=== PATIENT | male | born 1990 | race Two or more races ===

== ENCOUNTER 2024-08-23 17:32 | Emergency (ER) | payer SELFPAY ==
[2024-08-23] MEDS: Fluorescein 1 MG Ophth Strip EYEBOTH ONE (18:34)
[2024-08-23] MEDS: Proparacaine 0.5% Ophth Soln 15 ML Bottle EYEBOTH ONE (18:34)
[2024-08-23] MEDS: Ciprofloxacin 0.3% Ophth Soln 5 ML Bottle EYERT SCH (19:34)
== END 2024-08-23 19:35 | disposition home or self-care (01) ==
LOC: JD.ED 17:32
DX: T15.91XA Foreign body on external eye, part unspecified, right eye, initial encounter (principal); Z86.16 Personal history of COVID-19; W20.8XXA Other cause of strike by thrown, projected or falling object, initial encounter
CPT/HCPCS: 99283; A9270; J3490